=== PATIENT | female | born 1985 | race Caucasian/White ===

== ENCOUNTER 2020-03-13 09:59 | Emergency (ER) | payer SELFPAY ==
[~2020-03-13] VITALS: Ht 175.3 cm; Wt 136.4 kg
[~2020-03-13 09:59] MED LIST: NEURONTIN 300300 MG PO
[2020-03-13 10:04] VITALS: Ht 175.3 cm; Wt 136.4 kg
[2020-03-13 10:35] LABS: UDS - AMPHET NEGATIVE QUAL (NEGATIVE); UDS - BARB NEGATIVE QUAL (NEGATIVE); UDS - BENZO NEGATIVE QUAL (NEGATIVE); UDS - COCAINE POSITIVE QUAL (NEGATIVE); UDS - OPIATE NEGATIVE QUAL (NEGATIVE); UDS - PCP NEGATIVE QUAL (NEGATIVE); UDS - THC POSITIVE QUAL (NEGATIVE)
[2020-03-13 10:36] LABS: CALC OSMOLALITY 278 mosm/kg (275-300); CALCIUM 8.4 mg/dL (8.5-10.1); CARBON DIOXIDE 25.3 mmol/L (21.0-32.0); CHLORIDE - SERUM 106 mmol/L (98-107); CREATININE - SERUM 0.8 mg/dL (0.6-1.3); GLUCOSE 112 mg/dL (74-106); POTASSIUM - SERUM 3.7 mmol/L (3.5-5.1); SODIUM 140 mmol/L (136-145); UREA NITROGEN 10 mg/dL (7-18); eGFR NON AFRICAN AMERICAN 86 mL/min (90-120)
[2020-03-13 10:42] LABS: ALBUMIN 3.4 g/dL (3.4-5.0); ALKALINE PHOSPHATASE 53 U/L (30-120); ALT (SGPT) 41 U/L (10-68); BILIRUBIN - TOTAL 0.29 mg/dL (0.2-1.3); PROTEIN - SERUM 7.3 g/dL (6.4-8.2)
[2020-03-13 10:47] LABS: BACTERIA MANY /hpf (NEGATIVE); BILIRUBIN NEGATIVE (NEGATIVE); EPITHELIAL CELLS 0-5 /hpf (0-5); GLUCOSE NEGATIVE (NEGATIVE); KETONE NEGATIVE (NEGATIVE); NITRITE POSITIVE (NEGATIVE); SPECIFIC GRAVITY 1.025 (1.005-1.020); UROBILINOGEN NORMAL (NORMAL)
[2020-03-13 11:22] LABS: BASOPHILS 0.2 % (0-2); EOSINOPHILS 2.7 % (0-7); HEMATOCRIT 39.7 % (36.0-48.0); HEMOGLOBIN 12.8 g/dL (12-16); IMMATURE GRANULOCYTES 0.5 % (0-5); LYMPHOCYTES 25.7 % (15-50); MCH 28.1 pg (26.0-34.0); MCHC 32.2 g/dL (31.0-37.0); MCV 87.3 fL (80.0-100.0); MONOCYTES 6.5 % (2-11); NEUTROPHILS 64.4 % (40-80); PLATELET COUNT 309 10x3/uL (130-400); RBC 4.55 10x6/uL (4.00-5.40); RDW 15.7 % (11.5-14.5); WBC 8.6 10x3/uL (4.8-10.8)
--- NOTE | 2020-03-13 16:25 | NUR ---
DR. CASTELAN NOTIFIED OF ASSESSMENT RESULTS. SITTER ORDERED. SITTER AT BEDSIDE. CHARGE NURSE AND ATTENDING NOTIFIED. RESOURCES REVIEWED AND SAFETY PLAN COMPLETED.
[2020-03-13] MEDS ORDERED: MACROBID100 MG PO (16:28)
[2020-03-13] MEDS ORDERED: KEFLEX500 MG PO (16:28)
[2020-03-13 16:49] VITALS: BP 149/70
== END 2020-03-13 16:51 ==
LOC: D.ER 09:59
PROVIDERS: Family Medicine
DX: R45.851 Suicidal ideations (principal); G89.29 Other chronic pain; F43.9 Reaction to severe stress, unspecified

== ENCOUNTER 2020-12-04 12:24 | Day surgery (SDC) | payer MEDICAID ==
[~2020-12-04] VITALS: Ht 175.3 cm; Wt 147.3 kg
[~2020-12-04 12:24] MED LIST changes: +KEFLEX500 MG PO; +MACROBID100 MG PO
[2020-12-04 13:04] LABS: HCG SERUM NEGATIVE (NEGATIVE)
[2020-12-04] MEDS ORDERED: BUSPIRONE HCL30 MG PO (13:05)
[2020-12-04] MEDS ORDERED: VITAMIN D-32000 UNIT PO (13:05)
[2020-12-04] MEDS ORDERED: CYMBALTA20 MG PO (13:05)
[2020-12-04] MEDS ORDERED: ZANAFLEX2 M1 PO (13:06)
[2020-12-04 13:11] VITALS: BP 144/73; Ht 175.3 cm; Wt 147.3 kg
[2020-12-04 14:25] LABS: HEMATOCRIT 40.5 % (36.0-48.0); HEMOGLOBIN 12.7 g/dL (12-16); MCH 26.2 pg (26.0-34.0); MCHC 31.4 g/dL (31.0-37.0); MCV 83.5 fL (80.0-100.0); MEAN PLATELET VOLUME 9.6 fL (7.4-10.4); RBC 4.85 10x6/uL (4.00-5.40); RDW 16.7 % (11.5-14.5); WBC 8.4 10x3/uL (4.8-10.8)
--- NOTE | 2020-12-04 19:42 | OP ---
PATIENT NAME: STEF ROBERTS MEDICAL RECORD: [id number] :83 [facility]ATION[facility] ADMISSION DATE: SURGEON: ANABEL GONZALEZ DO DATE OF OPERATION: 12/04/2020 PROCEDURE: Colonoscopy with polypectomy and ablation. INDICATION FOR PROCEDURE: History of colon polyps. SCOPE: Olympus video pediatric colonoscope. MEDICATIONS: Propofol 550 mg IV per anesthesia. WITHDRAWAL TIME: 12 minutes. ESTIMATED BLOOD LOSS: Minimal. COMPLICATIONS: None. FINDINGS: Informed consent was given. The patient was made comfortable with the above medication. After reaching an adequate level of sedation by slow IV push, the patient was placed on her left side. A digital rectal examination was performed and it was normal. The endoscope was advanced under direct visualization through the rectum to the cecum, confirmed by the presence of the appendiceal orifice and ileocecal valve. The endoscope was slowly withdrawn, and the mucosa was carefully examined. The prep quality was good. There was a single benign appearing flat polyp consistent with a sessile serrated adenoma located in the ascending colon. It measured approximately 9 mm in length x 4 mm in width. It was removed using EMR technique utilizing a saline lift, injected submucosally followed by hot snare polypectomy successfully. There was a single benign appearing lesion adjacent to this that measured approximately 2 mm in diameter. It was ablated fully using the snare tip. There were no other polyps visualized on today's examination. There were no diverticula visualized. Retroflexion was performed in the rectum with a normal appearing rectal wall. The endoscope was withdrawn from the patient. The patient tolerated the procedure well and there were no complications. IMPRESSION: 1. Two polyps as described above. The larger of the 2 removed using EMR technique and the smaller ablated with the snare tip. 2. Otherwise, normal colonoscopy. PLAN AND RECOMMENDATIONS: 1. Discharge home when recovery parameters are met. 2. Follow up biopsy specimen results. 3. High fiber diet. 4. Continue current medications. 5. Anticipate recall colonoscopy in 3 years for suspected sessile serrated adenomatous polyp. TRANSINT:[id number] Voice Confirmation ID: [id number] DOCUMENT ID: [id number] OPERATIVE REPORT [id number] STEF ROBERTS ANABEL GONZALEZ DO at 1943 CC: [id number] DICTATION DATE: 12/04/20 8388 CONDUIT INSTALLER: 12/04/20 1634 [facility] [place] 12/04/20 [facility] [address] [place] [address]
== END 2020-12-04 15:55 | disposition home or self-care (01) ==
LOC: D.OPS 12:24
PROVIDERS: Anesthesiology; ATTEND Internal Medicine Gastroenterology
DX: Z86.010 Personal history of colon polyps (principal); Z12.11 Encounter for screening for malignant neoplasm of colon; K63.5 Polyp of colon